=== PATIENT | male | born 1965 | race Caucasian/White ===

== ENCOUNTER 2024-12-26 06:08 | Day surgery (SDC) | payer BC, SELFPAY ==
[2024-12-26] VITALS (9 sets, daily range): BP systolic 88–115; BP diastolic 57–89; BMI 35.9
[2024-12-26] MEDS: TYLENOL 1000 MG PO (06:44)
[2024-12-26] MEDS: NEURONTIN 300 MG PO (06:44)
[2024-12-26] MEDS: HEPARIN 5000 UNITS SC (06:44)
[2024-12-26] MEDS: NORMOSOL-R/PLASMALYTE-A 1000 IV (06:44)
--- NOTE | 2024-12-26 08:08 | OR.RPT ---
Operative Report
Operative Report
Date of Operation: December 26, 2024
Preoperative Diagnosis: Colon Cancer, Sigmoid - [id number]
Postoperative Diagnosis: Same
Surgeon: Amanuel Escobedo M.D.
Operation: Insertion of right single-lumen port via subclavian vein
Port Insertion - [id number]: Local with IV sedation
Estimated Blood Loss: 2cc
Drains: None
Specimen: none
Complications: �None
Procedure:
The patient was taken to the operating room and placed in the usual supine position. After adequate IV sedation was obtained patient's right neck and chest were prepped and draped in the usual sterile fashion. Approximately 3 cm transverse incision
was made 4 cm below the midclavicular line after injecting the area with 1% lidocaine. An incision was made with a #15 blade, and a subcutaneous pocket was created using electrocautery.� The right subclavian vein was accessed using a large-bore
needle through the same incision. The guidewire was passed through the needle into the SVC and confirmed on the fluoroscopy. Over the guidewire, the subcutaneous tissue was dilated, and the angio-sheath was placed in the SVC. The port was placed in
the subcutaneous pocket, and the catheter was passed through the angio-sheath into the SVC and confirmed on fluoroscopy.� The ports were aspirated and flushed without any resistance.� After obtaining adequate hemostasis, the incision was closed in
multiple layers. The subcutaneous tissue was reapproximated with # 3-0 Vicryl, and the skin was reapproximated with #4-0 Monocryl in a running subcuticular fashion. The patient tolerated the procedure well. The final instrument, needle, and sponge
counts were correct. The patient was transferred to the recovery room.
== END 2024-12-26 09:15 | disposition home or self-care (01) ==
LOC: SDS 06:08
PROVIDERS: ATTENDING PHYSICIAN Surgery; FAMILY PHYSICIAN Internal Medicine
PROC: 02HV33Z Insertion of Infusion Device into Superior Vena Cava, Percutaneous Approach (ICD-10-PCS; 2024-12-26)
PROC: 0JH63WZ Insertion of Totally Implantable Vascular Access Device into Chest Subcutaneous Tissue and Fascia, Percutaneous Approach (ICD-10-PCS; 2024-12-26)
DX: C18.7 Malignant neoplasm of sigmoid colon (principal)
CPT/HCPCS: 36561; 71045; 76000; C1788

== ENCOUNTER 2025-09-25 06:49 | Day surgery (SDC) | payer OTHER, SELFPAY ==
[2025-09-07 08:43] LABS: Hematocrit 43.3 % (39.0-52.0); Hemoglobin 14.3 g/dL (13.0-18.0); Mean Corp Hgb Conc. 33.0 g/dL (33.0-37.0); Mean Corpuscular Volume 94.7 fL (80.0-94.0); Nucleated Red Blood Cells % 0 % (-); Platelet Count 221 10^3/uL (130-400); Red Cell Dist. Width 13.1 % (11.5-14.5)
[2025-09-07 08:51] LABS: INR 1.07; PT 14.2 Sec (11.4-14.6)
[2025-09-07 08:55] LABS: ALT (SGPT) 26 U/L (0-50); AST (SGOT) 40 U/L (17-59); Albumin 4.4 g/dl (3.5-5.0); Alkaline Phosphatase 59 U/L (38-126); Blood Urea Nitrogen 11 mg/dl (9-20); Calcium 9.7 mg/dl (8.4-10.2); Carbon Dioxide 28 mmol/L (22-30); Chloride 103 mmol/L (98-107); Glucose 113 mg/dl (70-99); Magnesium 1.8 mg/dl (1.6-2.3); Potassium 4.6 mmol/L (3.5-5.1); Sodium 137 mmol/L (135-145); Total Protein 7.3 g/dl (6.3-8.2); eGFR > 60.00
[2025-09-07 10:00] VITALS: BMI 34.4
[2025-09-25] VITALS (10 sets, daily range): BP systolic 94–129; BP diastolic 69–83
[2025-09-25 10:28] LABS: ACT-LR - POC 248 Seconds (116-155)
[2025-09-25 10:47] LABS: ACT-LR - POC 295 Seconds (116-155)
--- NOTE | 2025-09-25 10:58 | ITS.CL.ABL ---
[facility] - Ablation
Ablation
Procedure Report:
ELECTROPHYSIOLOGY ABLATION STUDY
DATE:: September 25, 2025�����������������������������REFERRING: Dr. Epifanio Lugo
INDICATION: Persistent supraventricular tachycardia in the form of atrial fibrillation.� Status post RADHA demonstrating no intracardiac thrombus
HISTORY: See H and P.� As above
ANTIARRHYTHMIC DRUG: Metoprolol
PRE-PROCEDURE RADHA: No intracardiac thrombus
PRESENTING RHYTHM: Atrial fibrillation
'TIME-OUT':��called and confirmed.
SEDATION/ANESTHESIA:��provided via the anesthesia department using general anesthesia (LMA).
INTRAVENOUS/ARTERIAL ACCESS:
Right femoral venous - 8Fr
Left femoral venous - 8 Fr, 6 Fr
[id number] suture bilaterally
Ultrasound guidance for bilateral femoral vein access was utilized by me to obtain access with demonstration of normal anatomy
CHADS-VASC Score:
HAS-Bled Score
PROCEDURE:
1.��A decapolar CS catheter was placed within the CS for mapping and pacing.��This was also used as the reference catheter for the 3-D map.
2. The intracardiac ultrasound catheter was positioned in the RA to identify the FO for targeting of transseptal puncture, assist��in identification of the pulmonary vein ostia, monitoring pre and post ablation pulmonary vein flow velocities,
monitoring for 'bubble' formation during RF application as a sign of thermal injury,��and to monitor for pericardial effusion during mapping and ablation procedure.���Left atrial size, LV ejection fraction, and pulmonary vein flows were monitored
pre and post ablation procedure. The other valves were inspected and found to be free of significant regurgitation or stenosis.
3.��Half of the calculated heparin bolus was administered prior to the first transeptal puncture.��Transseptal puncture was performed to diagnose RA and LA pressure so that safety of LA mapping and ablation could be further assessed, and to access
the left atrium and pulmonary veins for mapping and ablation.��This entailed advancing an 16.8 Urdu RF wire, sheath with dilator into the superior vena cava and withdrawing both (monitoring intracardiac ultrasound, fluoroscopy and tip pressure)
with the tip oriented toward the atrial septum.��The fossa ovalis was engaged (indicated by sudden displacement of the sheath tip as well as tenting of the fossa seen on intracardiac ultrasound).��Left atrial access required a pass with the
Brockenbrough needle extended.��Left atrial catheter position was confirmed by pressure monitoring (RA mean pressure 4 mm Hg and LA mean presure 6 mm Hg after 1000 L normal saline LA pressure of 8 mmHg), LA saturation (99%),��as well as
fluoroscopy.��The sheath was advanced over the dilator and positioned in the left atrium.��This procedure was repeated for the Agilis sheath.��The remainder of the calculated heparin bolus was administered and heparin was
infused to maintain ACT at 300 -350 seconds throughout the case.
4.��RA pacing was performed via the proximal decapolar poles and LA pacing was performed via the distal decapolr poles.
5. A quadrapolar catheter was first positioned at the His position for His Bundle recording which was tagged via the 3-D Navex sytem, and then passed to the RVA for RV pacing and recording.
6. The ablation catheter was positioned through one of the transeptal seaths and a 20 pole ring mapping catheter was positioned through the second seath into the LA and then the ostia of the LIPV, LSPV, RSPV and the RIPV.��
7.��Next, a 3-D map was created using Navex.���A 3-D reconstructed CT image was compared to the 3-D Navex map to assist in anatomic interpretation, mapping and ablation.��The CT image and the NavX image were fused.
8 52 lesions were given to the pulmonary veins and the posterior wall. The pulmonary veins all of in basket pose to each of the 4 pulmonary veins rendering entrance block in all 4 pulmonary veins. Atrial fibrillation persisted. A roof floor and
posterior wall separate lesions and lines were given in flower pose with entrance block confirmed in the roof posterior wall and floor of the left atrium. Atrial fibrillation persisted despite those lesions and the patient was converted to sinus
rhythm after 1 200 J synchronized biphasic shock. Entrance and exit block was confirmed in all 4 pulmonary veins and the roof posterior wall and floor of the left atrium and the patient was noninducible EP study..
9. Normal sinus node AV node function noted.
TOTAL FLOURO TIME: 14.1 minutes 123 mGy
TOTAL RF DURATION: 0 minutes
REVERSAL OF HEPARIN: 35 mg of protamine, slow IV administration
COMPLICATIONS:
None
Intracardiac US shows no pericardial effusion post ablation.
SUMMARY:��
Complex left atrial mapping and ablation.
Isolation of all 4 pulmonary veins as well as the roof posterior wall for the left atrium as above.
RECOMMENDATIONS:
1. Ambulate in 4 hours
2. Resume anticoagulation
3.��Continue metoprolol
4.� Out of bed 4 hours
Copy to: Dr. Epifanio Lugo
--- NOTE | 2025-09-25 14:59 | W.PN.UPDATE ---
Update Note
Progress Note Update
Pt seen post PFA. Bilat groin sites without ht/bleeding, non tender. OOB ambulating. Post EKG NSR 60s, no acute changes. Resume eliquis tonight at usual time. Followup with Dr. Lugo as scheduled. Home today if groin sites/tele remain stable.
== END 2025-09-25 16:00 | disposition home or self-care (01) ==
LOC: CATH 06:49
PROVIDERS: ATTENDING PHYSICIAN Internal Medicine Cardiovascular Disease; FAMILY PHYSICIAN Internal Medicine; OTHER PHYSICIAN Internal Medicine Cardiovascular Disease
DX: I48.19 Other persistent atrial fibrillation (principal); I25.10 Atherosclerotic heart disease of native coronary artery without angina pectoris; I10 Essential (primary) hypertension; E78.5 Hyperlipidemia, unspecified; G47.33 Obstructive sleep apnea (adult) (pediatric); Z91.199 Patient's noncompliance with other medical treatment and regimen due to unspecified reason; Z87.891 Personal history of nicotine dependence; I87.2 Venous insufficiency (chronic) (peripheral); F90.9 Attention-deficit hyperactivity disorder, unspecified type; N40.0 Benign prostatic hyperplasia without lower urinary tract symptoms; C19 Malignant neoplasm of rectosigmoid junction; I34.0 Nonrheumatic mitral (valve) insufficiency; I47.10 Supraventricular tachycardia, unspecified; I45.10 Unspecified right bundle-branch block; I49.1 Atrial premature depolarization; Z79.01 Long term (current) use of anticoagulants; Z82.49 Family history of ischemic heart disease and other diseases of the circulatory system; Z82.3 Family history of stroke; Z79.82 Long term (current) use of aspirin; Z90.49 Acquired absence of other specified parts of digestive tract
CPT/HCPCS: 93312; 93320; 93325; C1732; C1894; C1769; C1892; C1759; 36415; 75572; 80053; 83735; 85025; 85347; 85610; 86850; 86900; 86901; 93005; 93656; 93657; C1733; C1766; Q9967